=== PATIENT | female | born 1950 | race Caucasian/White ===

== ENCOUNTER 2018-01-08 08:29 | Outpatient (RCR) | payer MEDICARE, OTHER ==
[~2018-01-08 08:29] MED LIST: ALN70T PO; ALPR0.5T PO; ASP81TEC PO; ATOR40TA70 PO; CALC1TAB88 PO; CELE200C PO; CITA40TA19 PO; DOCU100T7 PO; EST1.25T; EST1.25T PO; EZET1TAB43 PO; GLUCOSAMINE 1500 MG PO; HDR4T PO; LIDO700A33 TOP; MELO-195 PO; METH4TAB PO; MULT-608 PO; OMEG-9 PO; OMEG1CAP74 PO; OXYC5TAB71 PO; RABE20TA PO; VITORIN
== END 2018-01-08 09:03 | disposition home or self-care (01) ==
PROVIDERS: ATTEND Physician Assistant
DX: M43.16 Spondylolisthesis, lumbar region (principal)

== ENCOUNTER → 2018-08-28 | Outpatient (CLI) | payer MEDICARE, OTHER ==
[~2018-08-28] MED LIST changes: +IOHEXOL 350 MG/ML 100 ML (OMNIPAQUE 350) VIAL IV ONE; +NS 100 ML (IVPB) BAG IV ONE; +RECEIVED CONTRAST (Hold Metformin) IV SCH
[2018-08-28 11:25] LABS: BUN/CREATININE RATIO 19; CREATININE SERUM 0.85 MG/DL (0.60-1.30); GFR ESTIMATED > 60
--- NOTE | 2018-08-28 13:32 | Diagnostic Imaging Report ---
PROCEDURE: CT chest with contrast only. TECHNIQUE: Multiple contiguous axial images were obtained through the chest after administration of intravenous contrast. DATE: August 28, 2018. COMPARISON: Chest radiographs April 27, 2014. CT chest abdomen and pelvis April 14, 2014. INDICATION: 68-year-old female, workup for lymphadenopathy. FINDINGS: There is no identified pulmonary nodule or lung mass. There are very mild linear opacities in the left upper lobe compatible with mild scarring and/or atelectasis. There is no additional focal airspace consolidation. There is no pneumothorax. There is no pleural effusion. The central airways are patent. There is no identified pulmonary embolus. The main pulmonary artery is normal in caliber. The heart is not enlarged. No pericardial effusion. There is a right hilar lymph node on axial image 34 which measures 8 mm in short axis. There is a left hilar lymph node measuring 8 mm in short axis on axial image 30. There are similar additional subcentimeter short axis hilar lymph nodes present. There is no identified abnormally enlarged mediastinal lymph node. There are somewhat prominent bilateral axillary lymph nodes although internal fatty mckinley are present. There is a right supraclavicular lymph node on axial image 4 which measures 4 mm in short axis. There is an additional right supraclavicular lymph node on axial image 7 measuring 6 mm in short axis. These lymph nodes are all unchanged in size since at least April 14, 2014 compatible with benign etiology. There is a low-attenuation lesion in the left lobe of the liver measuring 7 mm in size too small to characterize. This is unchanged since April 14, 2014 consistent with benign etiology. There are multiple chronic-appearing left rib deformities. There is a small sclerotic lesion of the T5 vertebral body, T7 vertebral body and L1 vertebral body. These are unchanged since at least April 14, 2014 compatible with benign etiology. IMPRESSION: CT CHEST. 1. Supraclavicular lymph nodes measuring up to maximally 6 mm in short axis. Mildly prominent bilateral axillary lymph nodes do have internal fatty mckinley and are not overtly suspicious. There are also subcentimeter short axis bilateral hilar lymph nodes not specifically meeting CT size criteria for adenopathy. The lymph nodes are stable since at least comparison CT imaging of April 14, 2014 compatible with benign etiology. 2. No identified acute cardiopulmonary abnormality. 3. 7 mm low-attenuation lesion in the left lobe of the liver too small to characterize also unchanged since April 14, 2014 compatible with benign etiology. 4. Subcentimeter sclerotic bone lesions of T5, T7, and L1 which are unchanged since at least April 14, 2014 compatible with benign etiology. Dictated by: Dictated on workstation # [id number]
== END ==
LOC: RAD 10:44
PROVIDERS: ATTEND Family Medicine
DX: K76.9 Liver disease, unspecified (principal); M89.9 Disorder of bone, unspecified; R59.0 Localized enlarged lymph nodes
CPT/HCPCS: 36415; 71260; 82565; 84520

== ENCOUNTER 2018-10-16 09:00 | Outpatient (RCR) | payer MEDICARE, OTHER ==
[~2018-10-16 09:00] MED LIST changes: -IOHEXOL 350 MG/ML 100 ML (OMNIPAQUE 350) VIAL IV ONE; -NS 100 ML (IVPB) BAG IV ONE; -RECEIVED CONTRAST (Hold Metformin) IV SCH
== END 2018-10-19 | disposition home or self-care (01) ==
PROVIDERS: ATTEND Nurse Practitioner Family
DX: M48.02 Spinal stenosis, cervical region (principal); M54.12 Radiculopathy, cervical region; M75.41 Impingement syndrome of right shoulder

== ENCOUNTER 2018-12-04 08:29 | Outpatient (RCR) | payer MEDICARE, OTHER | END 2018-12-04 08:56 | disposition home or self-care (01) | PROVIDERS: ATTEND Nurse Practitioner Family | DX: M48.02 Spinal stenosis, cervical region (principal); M54.12 Radiculopathy, cervical region; M75.41 Impingement syndrome of right shoulder ==

== ENCOUNTER 2022-06-13 05:29 | Outpatient (CLI) | payer MEDICARE, OTHER ==
[~2022-06-13] VITALS: Ht 162.5 cm; Wt 83.1 kg
[2022-06-13] MEDS ORDERED: LEVO25CA4 PO (10:43)
== END 2022-06-13 11:05 | disposition home or self-care (01) ==
LOC: PREOP 05:29
PROVIDERS: ATTEND Podiatrist Foot & Ankle Surgery
DX: Z01.818 Encounter for other preprocedural examination (principal)

== ENCOUNTER 2022-06-21 07:41 | Day surgery (SDC) | payer MEDICARE, OTHER ==
[~2022-06-21] VITALS: Ht 162.5 cm; Wt 93.1 kg
[2022-06-21] VITALS (11 sets, daily range): BP systolic 112–149; BP diastolic 55–84
[~2022-06-21 07:41] MED LIST changes: +LEVO25CA4 PO
[2022-06-21] MEDS ORDERED: ceFAZolin INJECTION 1,000 MG VIAL IV ONE (08:00)
[2022-06-21] MEDS: LACTATED RINGERS 1,000 ML IV PRN ×2 (08:07→10:20)
[2022-06-21] MEDS ORDERED: NS (IVPB) 50 ML ONE (08:36)
[2022-06-21] MEDS ORDERED: fentaNYL INJ 100 MCG/2 ML AMP ONE (09:09)
[2022-06-21] MEDS ORDERED: proPOfol 200 MG/20 ML (DIPRIVAN) VIAL IV ONE (09:09)
[2022-06-21] MEDS ORDERED: ONDANSETRON 4 MG/2 ML (SDV) Z0FRAN ONE (09:09)
[2022-06-21] MEDS ORDERED: LIDOCAINE PF 2% 5 ML (XYLOCAINE) VIAL ONE (09:09)
[2022-06-21] MEDS ORDERED: LIDOCAINE 1% INJ 10 ML VIAL ONE (09:15)
[2022-06-21] MEDS ORDERED: BUPIVACAINE 0.5% 30 ML (SENSORCAINE) VIAL ONE (09:15)
--- NOTE | 2022-06-21 09:29 | Progress Note-Pre Operative ---
Pre-Operative Progress Note Date of Available H&P: Jun 21, 2022 Date H&P Reviewed: Jun 21, 2022 Time H&P Reviewed: 09:28 Pre-Operative Diagnosis: Hallux Valgus, right BHARGAVI KOCH DPSilvestre Jun 21, 2022 09:29
[2022-06-21] MEDS ORDERED: SEVOFLURANE (ULTANE) 15 ML INHAL SOLN ONE (10:20)
[2022-06-21] MEDS ORDERED: GLYCOPYRROLATE 0.2 MG/ML (ROBINUL) 2 ML VIAL ONE (10:20)
--- NOTE | 2022-06-21 10:34 | Progress Note-Post Operative ---
Post-Operative Progess Note Surgeon (s)/Health Services Information Specialist (s) Surgeon BHARGAVI KOCH DPM Health Services Information Specialist: none Pre-Operative Diagnosis Hallux Valgus, right Post-Operative Diagnosis Same Procedure & Operative Findings Date of Procedure 06/21/22 Procedure Performed/Findings Vineet Bunionectomy, right Anesthesia Type General Estimated Blood Loss Estimated blood loss (mL): Minimal Specimens/Packing Specimens Removed none BHARGAVI KOCH DPM Jun 21, 2022 10:34
[2022-06-21] MEDS ORDERED: OXYC1TAB11 PO (10:37)
[2022-06-21] MEDS ORDERED: CEPH500C PO (10:37)
--- NOTE | 2022-06-21 10:37 | Anesthesia-General Post-Op ---
General Patient Condition Mental Status/LOC: Same as Preop Cardiovascular: Satisfactory Nausea/Vomiting: Absent Respiratory: Satisfactory Pain: Controlled Complications: Absent Post Op Complications Complications None Follow Up Care/Instructions Patient Instructions None needed. Anesthesia/Patient Condition Patient Condition Patient is doing well, no complaints, stable vital signs, no apparent adverse anesthesia problems. No complications reported per nursing. NIA BABB CRNA Jun 21, 2022 10:37
[2022-06-21] MEDS ORDERED: HYDROmorphone 2 MG/ML VIAL (DILAUDID) IV ONE (10:45)
[2022-06-21] MEDS ORDERED: HYDROcodone/APAP 5 MG/325 MG (LORTAB) TAB PO PRN (10:45)
[2022-06-21] MEDS ORDERED: LACTATED RINGERS 1,000 ML IV SCH (10:45)
[2022-06-21] MEDS ORDERED: fentaNYL INJ 100 MCG/2 ML AMP IVP ONE (10:45)
[2022-06-21] MEDS ORDERED: ONDANSETRON 4 MG/2 ML (SDV) Z0FRAN IVP PRN (10:45)
[2022-06-21] MEDS ORDERED: morphine INJ 10 MG/ML 1ML (SYR OR VIAL) IVP ONE (10:45)
--- NOTE | 2022-06-21 12:47 | Physical Therapy Ortho Eval ---
PT Orthopedic Evaluation Type of Surgery Hallux Valgus, right Prior Level of Function Current Living Status: Spouse Locomotion (Upon Admit): Independent Subjective Subjective Patient in bed pre tx, agrees to PT, has no pain, patient states her foot is still numb. Entry Into Home: Stairs With Railing Steps Into Home: 5 Motor Control Motor Control: Motor Control WNL Transfer SCALE: Activities may be completed with or without assistive devices. 6-Mkjkvyjujx-thnxwrp completes the activity by him/herself with no assistance from a helper. 5-Set-up or Clean-up Assistance-helper sets up or cleans up; patient completes activity. [place] assists only prior to or following the activity. 4-Supervision or Touching Assistance-helper provides verbal cues and/or touching/steadying and/or contact guard assistance as patient completes activity. Assistance may be provided throughout the activity or intermittently. 3-Partial/Moderate Assistance-helper does LESS THAN HALF the effort. Rand[place] lifts, holds or supports trunk or limbs, but provides less than half the effort. 2-Substantial/Maximal Assistance-helper does MORE THAN HALF the effort. Randleman lifts or holds trunk or limbs and provides more than half the effort. 0-Afbjjrpgz-oaxnvr does ALL the effort. Patient does none of the effort to complete the activity. Or, the assistance of 2 or more helpers is required for the patient to complete the activity. If activity was not attempted, code reason: 7-Patient Refused. 9-Not Applicable-not attempted and the patient did not perform the activity before the current illness, exacerbation or injury. 10-Not Attempted due to Environmental Limitations-(lack of equipment, weather restraints, etc.). 88-Not Attempted due to Medical Conditions or Safety Concerns. Transfers (B, C, W/C) (QC): 4 Gait Right Lower Extremity: Right Weight Bearing Status RLE: Non Weight Bearing Left Lower Extremity: Left Weight Bearing Status LLE: Full Weight Bearing Summary/Comments Patient ambulated 60' with a rolling walker with CGA, she was able to maintain her NWB on the RLE, attempted to go up and down 1 step but she couldn't hop up enough to get onto the step. Her say he can help her get up the stairs at home, one hand on him and the other on the handrail should be a sufficient amount. Treatment Rendered Treatment: Therapeutic Exercises, Gait Train, Step Train Exercise Instruction: Quad Sets, Heel Slides, Ankle Pumps Assessment/Goals Goal Time Frame: 1 Visit Understands HEP: Yes Safe Ambulation: Yes Plan Treatment Plan: Discharge PT/Family Agrees to Plan: Yes Time Time In: 1144 Time Out: 1156 Total Billed Treatment Time: 12 Billed Treatment Time 1 visit TED 12' JAGUAR MONZON PT Jun 21, 2022 12:47
--- NOTE | 2022-06-21 13:05 | Diagnostic Imaging Report ---
INDICATION: Postop hallux valgus repair. COMPARISON: 08/13/2016 FINDINGS: 2 radiographic views of the right foot were obtained. Postsurgical changes to the 1st metatarsal are noted. Surgical pin extends to the distal 1st metatarsal. Osteotomy line is noted. No unexpected radiopaque foreign bodies are seen. Overlying soft tissue edema/swelling is noted. Joint spaces are preserved. IMPRESSION: 1. Postop changes of the right foot as above. No unexpected radiopaque foreign bodies. Dictated by: Dictated on workstation # [id number]
--- NOTE | 2022-06-21 14:21 | OPERATIVE REPORT ---
DATE OF SERVICE: 06/21/2022 SURGEON: Bhargavi Koch DPM. PREOPERATIVE DIAGNOSIS: Hallux abductovalgus metatarsal primus varus, right foot. POSTOPERATIVE DIAGNOSIS: Hallux abductovalgus metatarsal primus varus, right foot. PROCEDURE PERFORMED: Modified Vineet bunionectomy, right foot. WOUND CLASS: Clean. ANESTHESIA: General. HEMOSTASIS: Pneumatic thigh tourniquet at 250 mmHg. INDICATIONS FOR PROCEDURE: This 72-year-old female presents complaining of a painful right bunion. Conservative therapy has met with unsatisfactory results. The patient is willing to proceed after risks and complications were discussed at length. No guarantees were extended to the patient and she is willing to proceed. DESCRIPTION OF PROCEDURE: The patient was brought back to the operating table and placed in a secure and supine position. A general anesthetic was then induced. Appropriate timeout was performed. The right foot was anesthetized utilizing 15 mL of 1:1 mixture of 1% Xylocaine and 0.5% Marcaine injected in a Alford block. The foot was then prepped and draped in a normal sterile manner. The right foot was then elevated, allowed to exsanguinate after which the tourniquet was inflated to 250 mmHg. Attention was then directed to the dorsal aspect of the right first ray where a 5 cm longitudinal linear incision was created. The incision was deepened in the same plane with great care to identify and retract all vital neurovascular structures. Only necessary blood vessels were cauterized as encountered. The incision was deepened down to the capsule, where a longitudinal capsulotomy was performed. This exposed the hypertrophic dorsal and medial eminence of the first metatarsal head. These were resected utilizing a power sagittal saw. Attention was then directed to the lateral aspect of the first metatarsophalangeal joint, where a blunt dissection was carried out after which a lateral capsulorrhaphy was performed, release of the conjoint tendon of the adductor hallucis as well as release of the fibular sesamoidal ligament. Attention was redirected to the medial aspect of the first metatarsal, where a Chevron-type osteotomy was performed at the surgical neck from medial to lateral, allowing the capital fragment to translocate laterally and was fixated in its corrected position utilizing a 0.062 threaded K-wire driven from dorsal proximal to plantar distal across the osteotomy with great care not to penetrate the articular cartilage. The K-wire was cut flush with the dorsal aspect of the first metatarsal after which the wound was flushed with copious amounts of normal saline. The head of the first metatarsal was further contoured and smoothed utilizing a power bur. During this process, a bone cyst was identified to the dorsal medial aspect of the first metatarsal head and some of the resected bone was then packed within this bone cyst area. The wound was flushed with copious amounts of normal saline. The alignment of the first ray was within normal limits at this stage and the Gianfranco type procedure was not performed. The wound was flushed once again after which closure was performed in layers. Deep closure was performed with 3-0 Vicryl, superficial with 4-0 Vicryl, skin closed with 4-0 Prolene in a horizontal mattress type stitch. Postoperative injection consisted of 10 mL of 0.5% Marcaine injected in a Alford block followed by 10 mg of dexamethasone injected into the lateral aspect of the first metatarsophalangeal joint with a dorsal approach. Postoperative dressing consisted of Betadine soaked Adaptic, sterile 4 x 4, and sterile Kerlix all secured with a Coban wrap. The patient tolerated the anesthesia and procedure well and was transported from the operating room to the recovery area with vital signs stable and vascular status intact to all digits of the right foot. The patient is to follow up in my office in 10 days' period of time or sooner if necessary. She was given a prescription for oxycodone and Keflex. She has an intolerance to hydrocodone, but indicated that she has tolerated oxycodone in the past without any issues. We will make sure the patient is nonweightbearing with a knee scooter, crutches or walker. Job ID: [id number] DocumentID: [id number] Dictated Date: 06/21/2022 10:44:24 General Warehouse Associate Date: 06/21/2022 14:21:04 Dictated By: BHARGAVI KOCH DPM
== END 2022-06-21 12:50 | disposition home or self-care (01) ==
LOC: SDC 07:41
PROVIDERS: ATTEND Podiatrist Foot & Ankle Surgery
DX: M20.11 Hallux valgus (acquired), right foot (principal); E03.9 Hypothyroidism, unspecified; E78.49 Other hyperlipidemia; J30.89 Other allergic rhinitis; F32.A Depression, unspecified; M48.062 Spinal stenosis, lumbar region with neurogenic claudication
CPT/HCPCS: 28299; 73620; 87081; 97161; C1713